=== PATIENT | female | born 1990 | race Caucasian/White ===

== ENCOUNTER 2019-07-17 16:45 | Emergency (ER) | payer OTHER, SELFPAY ==
[2019-07-17 17:11] VITALS: BP 128/87; PULSE 100; RESP 20; TEMP 37.7; O2SAT 100
--- NOTE | 2019-07-17 17:50 | ED.GENADULT ---
HPI - General Adult General Chief complaint: Upper Respiratory Infection Stated complaint: Ear/Nose Throat Time Seen by Provider: 07/17/19 17:50 Source: patient and RN notes reviewed Mode of arrival: ambulatory Limitations: no limitations History of Present Illness HPI narrative: 28-year-old female presents with complaints of sore throat, back pain, tactile fever, chills, and rhinorrhea for 1 day. Symptoms worsen throughout the day. Mucinex DM and Flonase without relief. No high fevers, drooling, neck or throat swelling. Pain is bilateral. Hurts to swallow. Rhinorrhea and nasal congestion. No voice change. Nausea without vomiting or abdominal pain. Tolerating liquids well. Denies dyspnea, difficulty swallowing, jaw pain, dental pain, facial pain, foreign body sensation, and rash. Remains active. Kacey denies being , LMP 4 weeks ago, says she due for her cycle tomorrow. Some parts of this dictation were generated by voice recognition software and may contain typographical and/or grammatical inaccuracies. Related Data Allergies Allergy/AdvReac Type Severity Reaction Status Date / Time amoxicillin Allergy Unknown Rash Verified 07/17/19 17:25 clavulanic acid Allergy Unknown Rash Verified 07/17/19 17:25 clindamycin Allergy Unknown Hives / Verified 07/17/19 17:25 Red Face Review of Systems Review of Systems: Narrative: CONSTITUTIONAL: Complains of fever, chills. Denies sweats. EYES: Denies visual changes, redness, discharge. ENT: Denies otalgia. Complains of sore throat, rhinorrhea, congestion. CARDIOVASCULAR: Denies chest pain, palpitations, edema. RESPIRATORY: Denies dyspnea, wheezing, cough. GASTROINTESTINAL: Denies abdominal pain, nausea, vomiting, diarrhea. GENITOURINARY: Denies dysuria, hematuria, abnormal discharge SKIN: Denies rash or itching. MUSCULOSKELETAL: Denies acute back pain, joint pain, or myalgia. NEUROLOGIC: Denies numbness or focal weakness. PSYCHIATRIC: Denies anxiety or depression PMFSH Comments At time of signature, agree with nurse past medical, surgical, social, and family history. There is no relevant family history pertinent to the presenting complaint. Exam Narrative: Exam Narrative: GENERAL: This is a well-nourished, well-developed patient, in no apparent distress. Speaks in full sentences without deficits and ambulates with steady gait without dyspnea. HEAD: normocephalic, atraumatic. EYES: PERRL. Sclera clear/white. Vision is grossly intact. EARS: External ears normal, auditory canals clear and without drainage, TMs normal without perforation. Hearing grossly intact. NOSE: External nose normal with no obvious nasal discharge, nares with moderate redness and enlarge turbinates, no rhinorrhea. Mouth: moist mucous membranes. THROAT: Mucous membranes moist, posterior pharynx with PND, moderate erythema, and no exudate, and normal tonsils, no drainage, no concern for Peritonsillar abscess. No drooling, trismus, or neck swelling. NECK: Neck supple, non-tender without lymphadenopathy, masses or thyromegaly. CARDIOVASCULAR: Regular rate and rhythm without murmurs, gallops, or rubs. RESPIRATORY: Clear to auscultation. Breath sounds equal bilaterally. No wheezes, rales, or rhonchi. GASTROINTESTINAL: Abdomen soft, non-tender, nondistended. Bowel sounds are active. No hepato-splenomegaly, or palpable masses. No guarding. SKIN: warm, intact with no suspicious lesions or rash, good texture and turgor. NEURO: awake, alert, and oriented to person, place and time. There were no obvious focal neurologic abnormalities. EXTREMITIES: No clubbing, cyanosis, or edema. [place] Coma Scale Eye Opening: Spontaneous 4 [place] Coma Scale Motor: Obeys Commands 6 Reyna Coma Scale Verbal: Oriented 5 Course Vital Signs Vital signs: Vital Signs Temperature 37.7 C H 07/17/19 17:11 Pulse Rate 100 07/17/19 17:11 Respiratory Rate 20 07/17/19 17:11 Blood Pressure 128/87 07/17/19 17:11
== END 2019-07-17 18:05 | disposition home or self-care (01) ==
PROVIDERS: Emergency Provider Nurse Practitioner Family
DX: J02.0 Streptococcal pharyngitis (principal)
CPT/HCPCS: 87880; 99213; G0463

== ENCOUNTER 2022-05-08 08:48 | Emergency (ER) | payer OTHER, SELFPAY ==
[2022-05-08 08:53] VITALS: BP 123/76; PULSE 111; RESP 16; TEMP 36.9; O2SAT 99
--- NOTE | 2022-05-08 10:01 | ED.URI ---
HPI - URI/Sore Throat General Chief Complaint: Upper Respiratory Infection Stated Complaint: sinus infection fever Time Seen by Provider: 05/08/22 09:51 Source: patient Mode of arrival: ambulatory Limitations: no limitations History of Present Illness HPI Narrative: Patient presents today complaining of body aches, headache, congestion, subjective fever with chills, nausea, cough. She was exposed to influenza her 3 days ago and symptoms began yesterday. She took Mucinex D a few days ago, but nothing since then. She has not received a flu vaccine this season. Related Data Allergies Allergy/AdvReac Type Severity Reaction Status Date / Time amoxicillin Allergy Unknown Rash Verified 07/17/19 17:25 clavulanic acid Allergy Unknown Rash Verified 07/17/19 17:25 clindamycin Allergy Unknown Hives / Verified 07/17/19 17:25 Red Face Review of Systems Review of Systems: CONSTITUTIONAL: Denies sweats.+ body aches, subjective fever, chills EYES: Denies visual changes, redness, or discharge. ENT: Denies rhinorrhea, sore throat, or otalgia.+ congestion CARDIOVASCULAR: Denies chest pain, palpitations, or edema. RESPIRATORY: Denies dyspnea.+ GASTROINTESTINAL: Denies abdominal pain, vomiting, or diarrhea.+ nausea GENITOURINARY: Denies dysuria or hematuria. SKIN: Denies rash, itching, or wounds. MUSCULOSKELETAL: Denies back pain, joint pain, or myalgia. NEUROLOGIC: Denies numbness, tingling, or weakness.+ headache PSYCH: Denies depression or anxiety. PMFSH Comments At time of signature, I have reviewed and agree with nursing past medical, surgical, social and family history unless otherwise noted. Please see nursing chart for further information. There is no relevant family history pertinent to the presenting complaint Exam Narrative: GENERAL: Mildly ill-appearing, well-nourished, and in no acute distress. HEAD: Normocephalic, atraumatic. EYES: EOMI. No redness or drainage. Conjunctivae normal. ENT: Mucous membranes pink and moist. Nares congested.. No rhinorrhea. TMs normal bilaterally. Throat normal. Uvula midline. NECK: Normal AROM. Supple. No lymphadenopathy. CHEST: No respiratory distress. Clear to auscultation. HEART: Regular rate and rhythm. No murmur appreciated. Normal peripheral pulses. EXTREMITIES: Normal range of motion. No edema. SKIN: Warm, dry, no rash. Capillary refill normal. Normal skin turgor. NEURO: No focal deficits. Alert and oriented x3. Gait steady. PSYCH: Normal affect. No signs of depression or anxiety. Course Course Level of Care: Express Care Visit Vital Signs Vital signs: Vital Signs Temperature 98.5 F 05/08/22 08:53 Pulse Rate 111 H 05/08/22 08:53 Respiratory Rate 16 05/08/22 08:53 Blood Pressure 123/76 05/08/22 08:53 Pulse Oximetry 99 05/08/22 08:53 Oxygen Delivery Room Air 05/08/22 08:53 Temperature 98.5 F 05/08/22 08:53 Pulse Rate 111 H 05/08/22 08:53 Respiratory Rate 16 05/08/22 08:53 Blood Pressure 123/76 05/08/22 08:53 Pulse Oximetry 99 05/08/22 08:53 Oxygen Delivery Room Air 05/08/22 08:53 Reviewed. Pt has been instructed to follow up with her PCP regarding her elevated blood pressure today. MDM - URI/Sore Throat Differential Diagnosis Differential diagnosis: Likely upper respiratory infection, viral infection and influenza Lab Data Attestation: I reviewed the patient's lab results. Labs: Influenza A Screen Positive Reference Range: Negative Influenza B Screen Negative Reference Range: Negative Critical Care Time Critical Care Time Critical Care Time: No Discharge Plan Discharge Clinical Impression: Influenza A Patient Disposition: Home, Self-Care Condition: Stable Instructions: Influenza (DC) Additional Instructions: You have been diagnosed with influenza A. Please take the T
== END 2022-05-08 10:09 | disposition home or self-care (01) ==
PROVIDERS: Emergency Provider Nurse Practitioner
DX: J10.1 Influenza due to other identified influenza virus with other respiratory manifestations (principal)
CPT/HCPCS: 87804; 99213; G0463

== ENCOUNTER 2023-03-11 00:06 | Emergency (ER) | payer OTHER, SELFPAY ==
[2023-03-11 00:07] VITALS: BP 125/91; PULSE 89; RESP 16; TEMP 36.2; O2SAT 100
[2023-03-11 02:20] VITALS: BP 141/85; PULSE 110; RESP 15; TEMP 36.6; O2SAT 100
--- NOTE | 2023-03-11 07:37 | ED.HA ---
HPI - Headache General Chief Complaint: Headache Stated Complaint: 13 weeks preg, migraines Time Seen by Provider: 03/11/23 07:02 History of Present Illness HPI Narrative: Patient is a 32-year-old female who is 13 weeks who presents ER with reports of migraine headache. She has been having headaches since early in her . He originally there posterior and by her neck. They would occur for minutes at a time. Recently they have moved and become frontal headaches. Throbbing and aching. No change in vision or hearing. No photophobia. She denies aura. She has been referred to a neurologist. She has had an outpatient MRI scheduled but she has not yet been able to get it. She has had no complications with her outside of the headaches that she has been experiencing. She does report some sinus congestion and some fullness in her left ear at times. Current headache has been gradual in onset. No upper or lower extremity numbness or weakness. No ataxia with walking. Related Data Allergies Allergy/AdvReac Type Severity Reaction Status Date / Time amoxicillin Allergy Unknown Rash Verified 07/17/19 17:25 clavulanic acid Allergy Unknown Rash Verified 07/17/19 17:25 clindamycin Allergy Unknown Hives / Verified 07/17/19 17:25 Red Face Review of Systems Review of Systems: All systems reviewed & are unremarkable except as noted in HPI and below Constitutional: Constitutional: Denies chills, Denies fatigue and Denies fever(s) Eyes: Eyes: Denies change in vision and Denies photophobia ENT: Reports nasal congestion and Denies sore throat Cardiovascular: Cardiovascular: Denies chest pain, Denies rapid heart rate and Denies radiating jaw, neck or arm pain Respiratory: Respiratory: Denies cough, Denies dyspnea and Denies wheezing Gastrointestinal: Gastrointestinal: Denies abdominal pain, Denies nausea and Denies vomiting Neurologic: Denies dizziness, Reports headache(s), Denies focal weakness and Denies numbness PMFSH Past Medical History Medical History (Updated 03/11/23 @ 08:37 by Sander Matt MD) Healthy female adult Surgical History Surgical History (Updated 03/11/23 @ 07:39 by Sander Matt MD) No history of previous surgery Exam Narrative: GENERAL: Well-appearing, well-nourished, and in no acute distress. HEAD: Normocephalic, atraumatic. EYES: PERRL and EOMI. ENT: TMs normal bilaterally and ear canals free of cerumen. CHEST: Clear to auscultation. No respiratory distress. HEART: Regular rate and rhythm. Normal peripheral pulses. ABDOMEN: Soft, nontender, nondistended. EXTREMITIES: Normal range of motion. No edema. SKIN: Warm, dry, no rash. NEURO: Alert and oriented x3. PSYCH: Normal mood and affect. Course Course Emergency Course: Headache improved with Reglan and Benadryl as well as IV fluid. No leukocytosis or anemia. Electrolytes unremarkable with normal renal function. Urinalysis with 1+ bacteria and trace leukocyte Estrace. Will place on oral antibiotic for home given . Vital Signs Vital signs: Vital Signs Temperature 97.1 F L 03/11/23 00:07 Pulse Rate 89 03/11/23 00:07 Respiratory Rate 16 03/11/23 00:07 Blood Pressure 125/91 H 03/11/23 00:07 Pulse Oximetry 100 03/11/23 00:07 Oxygen Delivery Room Air 03/11/23 00:07 Temperature 98 F 03/11/23 02:20 Pulse Rate 110 H 03/11/23 02:20 Respiratory Rate 15 03/11/23 02:20 Blood Pressure 141/85 H 03/11/23 02:20 Pulse Oximetry 100 03/11/23 02:20 Oxygen Delivery Room Air 03/11/23 00:07 MDM - Headache Lab Data 03/11/23 07:44 03/11/23 07:44 Labs: Lab Results 03/11/23 03/11/23 Range/Units 07:44 08:13 WBC 6.4 (4.5-10.0) K/mm3 RBC 3.90 L (4.2-5.4) M/mm3 Hgb 12.3 (12.0-15.0) g/dL Hct 35.7 L (37.0-47.0) % MCV 91.5 (80-100) fl MCH 31.5 (26-34) pg MCHC 34.5 (32-36) g/dl RDW 12.4 (11.5-14.
[2023-03-11] MEDS: SODIUM CHLORIDE 0.9% IV 1,000 ML 999 ML IV CONT (07:39)
[2023-03-11] MEDS: diphenhydrAMINE HCl INJ 50 MG/ML VIAL 25 MG IV PUSH (07:40)
[2023-03-11] MEDS: METOCLOPRAMIDE HCL INJ 10 MG/2 ML VIAL IV PUSH (07:40)
[2023-03-11 07:51] LABS: Basophils Absolute Auto 0.1 K/mm3 (0.0-0.1); Basophils Percent Auto 0.8 % (0.2-1.2); Eosinophils Percent Auto 0.5 % (0-4.4); Hematocrit 35.7 % (37.0-47.0); Hemoglobin 12.3 g/dL (12.0-15.0); Immature Granulocyte Absolute 0.02 K/mm3 (0.00-0.031); Immature Granulocyte Percent A 0.3 % (0-0.5); Lymphocytes Absolute Auto 1.77 K/mm3 (0.9-3.2); Lymphocytes Percent Auto 27.7 % (18.3-44.2); Mean Corpuscular HGB Conc 34.5 g/dl (32-36); Mean Corpuscular Hemoglobin 31.5 pg (26-34); Mean Corpuscular Volume 91.5 fl (80-100); Mean Platelet Volume 9.7 fl (7.4-10.4); Monocytes Absolute Auto 0.5 K/mm3 (0.1-0.6); Monocytes Percent Auto 7.5 % (2.6-8.5); Neutrophils Percent Auto 63.2 % (45.5-73.1); Platelet Count Result 265 k/mm3 (150-375); Red Cell Distribution Width 12.4 % (11.5-14.5); White Blood Count 6.4 K/mm3 (4.5-10.0)
[2023-03-11 08:00] VITALS: BP 130/80; PULSE 76; RESP 16; O2SAT 98
[2023-03-11 08:06] LABS: Alanine Aminotransferase 17 U/L (6-35); Albumin Level 4.1 g/dL (3.5-5.1); Alkaline Phosphatase 46 U/L (38-126); Anion Gap 7 mmol/L (8-16); Aspartate Amino Transferase 24 U/L (14-36); Bilirubin,Total 0.6 mg/dL (0.2-1.3); Blood Urea Nitrogen 5 mg/dL (7-17); Calcium 8.8 mg/dL (8.4-10.2); Carbon Dioxide 24 mmol/L (22-30); Chloride 104 mmol/L (98-107); Estimated CRCL calculation 136 ml/min; Estimated Glomerular Filt Rate > 60; Glucose 86 mg/dL (65-110); Potassium 3.6 mmol/L (3.4-5.0); Sodium 135 mmol/L (137-145)
[2023-03-11 08:28] LABS: Appearance Urine Clear (Clear); Bacteria Urine 1+ /hpf; Bilirubin Urine Negative (Negative); Blood Urine Negative (Negative); Color Urine Yellow (Yellow); Glucose Urine UA Negative (Negative); Ketones Urine Negative (Negative); Leukocyte Esterase Ur Trace LEU/UL (Negative); Nitrate Urine Negative (Negative); Non Pathogenic Casts 0-2; Protein Urine Negative (Negative); RBC Urine 0-2 /hpf (0-2); Specific Grav Ur 1.011 (1.001-1.035); Squamous Epithelial Cell Urine None seen /hpf (Few); Urobilinogen Urine 0.2 mg/dL (<2.0); WBC Urine 0-5 /hpf; pH Urine 6.5 (5.0-9.0)
[2023-03-11 08:29] LABS: Add Urine Microscopic? YES
[2023-03-11 08:46] VITALS: BP 132/88; PULSE 86; RESP 16; O2SAT 98
== END 2023-03-11 08:47 | disposition home or self-care (01) ==
PROVIDERS: Emergency Provider Emergency Medicine
DX: O26.891 Other specified pregnancy related conditions, first trimester (principal); R51.9 Headache, unspecified; R82.71 Bacteriuria; Z3A.13 13 weeks gestation of pregnancy
CPT/HCPCS: 36415; 80053; 81001; 85025; 96361; 96374; 96375; 99284; J1200; J2765; J7030

== ENCOUNTER 2023-05-22 20:13 | Observation (INO) | payer OTHER, SELFPAY ==
[2023-05-22] VITALS (10 sets, daily range): BP systolic 68–116; BP diastolic 53–78; PULSE 55–86; BMI 32.0
[2023-05-22] MEDS: LACTATED RINGERS 500 ML 999 ML IV CONT (21:10)
[2023-05-22] MEDS: PROMETHAZINE HCL 25 MG/ML AMPUL 12.5 MG IV PUSH (21:10)
[2023-05-22] MEDS: ACETAMINOPHEN/BUTALBITAL/CAFFEINE 325-50-40 MG TABLET (FIORICET) 1 TAB PO (21:45)
--- NOTE | 2023-05-22 23:04 | PC.NURSE ---
2240 PT CALLS OUT REQUESTING DISCHARGE HOME. PT DENIES HEADACHE OR COMPLAINTS AT THIS TIME.
--- NOTE | 2023-05-25 06:38 | PM.OBTRLD ---
OB - Triage/Final Diagnosis Visit Information Reason for evaluation: threatened labor Comments/Additional reasons for admission: I have assessed the risk for this patient, Kacey Merritt, and determined that she would benefit from observation care.
== END 2023-05-22 23:10 | disposition home or self-care (01) ==
PROVIDERS: Admitting Provider Obstetrics & Gynecology; Visit Provider Obstetrics & Gynecology
DX: O47.02 False labor before 37 completed weeks of gestation, second trimester (principal); Z3A.23 23 weeks gestation of pregnancy
CPT/HCPCS: 96374; A9270; G0378; G0379; J2550; J7120

== ENCOUNTER 2023-09-06 08:12 | Outpatient (CLI) | payer OTHER, SELFPAY ==
[2023-09-06 08:48] LABS: Hematocrit 35.6 % (37.0-47.0); Hemoglobin 11.6 g/dL (12.0-15.0); Mean Corpuscular HGB Conc 32.6 g/dl (32-36); Mean Corpuscular Hemoglobin 30.4 pg (26-34); Mean Corpuscular Volume 93.2 fl (80-100); Mean Platelet Volume 10.3 fl (7.4-10.4); Platelet Count Result 224 k/mm3 (150-375); Red Blood Count 3.82 M/mm3 (4.2-5.4); Red Cell Distribution Width 13.6 % (11.5-14.5); White Blood Count 9.5 K/mm3 (4.5-10.0)
--- NOTE | 2023-09-06 13:55 | PM.IMHP ---
H&P: HPI History of Present Illness Date/Time: 09/06/23 13:55 Chief Complaint: Term for section and tubal ligation secondary to history difficult vaginal delivery Narrative: This is a 32-year-old female admitted for primary low-transverse section secondary to history to have very difficult to instrumented delivery pre. She desires permanent sterilization. The has been otherwise uncomplicated. Risks benefits of reviewed in great detail. Permanence of with tubal ligation were. Alternatives were also reviewed and she opts for the permanent procedure PMFSH Past Medical History Medical History (Updated 09/06/23 @ 13:58 by Codey Dasilva MD) Healthy female adult Surgical History Surgical History (Updated 03/11/23 @ 07:39 by Sander Matt MD) No history of previous surgery Meds Home Medications and Allergies Home Medications Medication Instructions Recorded Confirmed Type loratadine 10 mg tablet (Claritin) 10 mg PO DAILY 60 days #60 tabs 07/17/19 09/06/23 Rx vits no.126-ferrous fum 1 tablet PO DAILY 09/06/23 09/06/23 History 28 mg iron-folic acid 800 mcg tablet (Classic ) Allergies Allergy/AdvReac Type Severity Reaction Status Date / Time amoxicillin Allergy Unknown Rash Verified 09/06/23 09:25 clavulanic acid Allergy Unknown Rash Verified 09/06/23 09:25 clindamycin Allergy Unknown Hives / Verified 09/06/23 09:25 Red Face Exam Const: General: cooperative, healthy appearing and comfortable Nutritional Appearance: average body habitus Orientation/consciousness: oriented to person, oriented to place and oriented to time HENMT: Head: normal to inspection Resp: Effort & Inspection: normal respiratory effort Cardio: Rate: regular rate Rhythm: regular rhythm Heart sounds: S1 normal heart sound present and S2 normal heart sound present GI: Inspection: normal to inspection (Gravid soft uterus. Baby is transverse) : External Female Exam: normal external appearance Speculum Exam - Vagina: normal appearance of the vagina Speculum Exam - Cervix: normal appearance of the cervix (Or thickened closed) H&P: Results Labs Labs: Short CBC 09/06/23 Range/Units 08:25 WBC 9.5 (4.5-10.0) K/mm3 Hgb 11.6 L (12.0-15.0) g/dL Hct 35.6 L (37.0-47.0) % Plt Count 224 (150-375) k/mm3 Assessment and Plan Assessment and plan (1) Term : Code(s): Z34.90 - Encounter for supervision of normal , unspecified, unspecified trimester Status: Acute (2) Sterilization: Code(s): Z30.2 - Encounter for sterilization Status: Acute Plan Pe primary low-transverse section with tubal ligation
[2023-09-06 16:14] LABS: Rapid Plasma Reagin Non-Reactive (NonReactive)
== END 2023-09-06 08:13 | disposition home or self-care (01) ==
PROVIDERS: Visit Provider Obstetrics & Gynecology
DX: Z34.93 Encounter for supervision of normal pregnancy, unspecified, third trimester (principal); Z3A.00 Weeks of gestation of pregnancy not specified
CPT/HCPCS: 36415; 85027; 86592; 86703; 86850; 86900; 86901; G0432

== ENCOUNTER 2023-09-07 05:26 | Inpatient (IN) | payer OTHER, SELFPAY ==
--- NOTE | 2023-09-06 13:58 | HP_ITS ---
This report was moved to the correct visit on 09/10/2023. The original report was signed by Codey Thornton MD on 09/06/23 [id number]. H&P: HPI History of Present Illness Date/Time: 09/06/23 13:55 Chief Complaint: Term for section and tubal ligation secondary to history difficult vaginal delivery Narrative: This is a 32-year-old female admitted for primary low-transverse section secondary to history to have very difficult to instrumented delivery pre. She desires permanent sterilization. The has been otherwise uncomplicated. Risks benefits of reviewed in great detail. Permanence of with tubal ligation were. Alternatives were also reviewed and she opts for the permanent procedure PMFSH Past Medical History Medical History (Updated 09/06/23 @ 13:58 by Codey Dasilva MD) Healthy female adult Surgical History Surgical History (Updated 03/11/23 @ 07:39 by Sander Matt MD) No history of previous surgery Meds Home Medications and Allergies Home Medications Medication Instructions Recorded Confirmed Type loratadine 10 mg tablet (Claritin) 10 mg PO DAILY 60 days #60 tabs 07/17/19 09/06/23 Rx vits no.126-ferrous fum 1 tablet PO DAILY 09/06/23 09/06/23 History 28 mg iron-folic acid 800 mcg tablet (Classic ) Allergies Allergy/AdvReac Type Severity Reaction Status Date / Time amoxicillin Allergy Unknown Rash Verified 09/06/23 09:25 clavulanic acid Allergy Unknown Rash Verified 09/06/23 09:25 clindamycin Allergy Unknown Hives / Verified 09/06/23 09:25 Red Face Exam Const: General: cooperative, healthy appearing and comfortable Nutritional Appearance: average body habitus Orientation/consciousness: oriented to person, oriented to place and oriented to time HENMT: Head: normal to inspection Resp: Effort & Inspection: normal respiratory effort Cardio: Rate: regular rate Rhythm: regular rhythm Heart sounds: S1 normal heart sound present and S2 normal heart sound present GI: Inspection: normal to inspection (Gravid soft uterus. Baby is transverse) : External Female Exam: normal external appearance Speculum Exam - Vagina: normal appearance of the vagina Speculum Exam - Cervix: normal appearance of the cervix (Or thickened closed) H&P: Results Labs Labs: Short CBC 09/06/23 Range/Units 08:25 WBC 9.5 (4.5-10.0) K/mm3 Hgb 11.6 L (12.0-15.0) g/dL Hct 35.6 L (37.0-47.0) % Plt Count 224 (150-375) k/mm3 Assessment and Plan Assessment and plan (1) Term : Code(s): Z34.90 - Encounter for supervision of normal , unspecified, unspecified trimester Status: Acute (2) Sterilization: Code(s): Z30.2 - Encounter for sterilization Status: Acute Plan Pe primary low-transverse section with tubal ligation This report may have been done utilizing a voice recognition system. Attempts have been made to correct errors. However, there may be uncorrected grammatical, spelling, and recognition errors present. Report Initialized date/time: Codey Thornton MD 09/06/23 / 1624 Electronically signed by: Codey Thornton MD 09/06/23 1350 [facility]
[2023-09-07] VITALS (49 sets, daily range): BP systolic 101–135; BP diastolic 56–89; PULSE 72–178; RESP 12–18; TEMP 36.4–36.9; O2SAT 90–100; BMI 33.5
[2023-09-07] MEDS: ACETAMINOPHEN 500 MG TABLET 1000 MG PO (05:42)
--- NOTE | 2023-09-07 05:54 | WPDHPUPDATE1 ---
History and Physical Update Update Date/Time: 09/07/23 05:54 History and Physical has been reviewed, including an updated exam of the patient. There are NO changes in the patient's condition. Risks, benefits, and alternatives have been discussed and questions answered. Patient agrees to proceed with procedure.
--- NOTE | 2023-09-07 07:10 | P.PNAN_ITS ---
Anes - Initial Pre Proc Eval Procedure: Operation Date: 09/07/23 07:30 Proposed Procedures p Section with Tubal Ligation - Codey Dasilva MD Date/Time: 09/07/23 07:10 Surgeon: Codey Dasilva MD Pre Op Diagnosis: C/S Patient Data Age: 32 Gender: F Height: 1.6 m Weight: 86 kg Last Vital Signs Pulse 97 09/07/23 06:33 BP 130/89 09/07/23 06:33 O2 Del Method Room Air 09/07/23 05:52 Allergies Allergy/AdvReac Type Severity Reaction Status Date / Time amoxicillin Allergy Unknown Rash Verified 09/07/23 05:59 clavulanic acid Allergy Unknown Rash Verified 09/07/23 05:59 clindamycin Allergy Unknown Hives / Verified 09/07/23 05:59 Red Face Home Medications Medication Instructions Recorded Confirmed Type vits no.126-ferrous fum 1 tablet PO DAILY 09/06/23 09/07/23 History 28 mg iron-folic acid 800 mcg tablet (Classic ) Patient hx anesthesia problems: none Family hx anesthesia problems: none Results Review: All pre-operative results and documents have been reviewed as part of the pre- operative evaluation. [facility] Past Medical History Medical History (Updated 09/07/23 @ 07:10 by Codey Velazquez MD) Obesity Surgical History Surgical History (Updated 03/11/23 @ 07:39 by Sander Matt MD) No history of previous surgery Family History Family History Other Hypertension Social History Social History Smoking status: Never smoker Substance use: never Do You Feel Safe in your Home?: Yes Lack of Transportation: No Lack of Food: Never True Current Housing: I Have Housing Concerned About Future Housing: No Difficulty Paying Gas/Electric Bills: No Difficulty Paying for Meds: No Currently Unemployed: No Education: Bachelor's Degree Difficulty w/ Childcare or Family Care: No Spiritual care concerns: No Anes - Eval Final PreProcedure Day of Procedure 09/07/23 07:10 Patient weight: obese Heart: regular rate and rhythm Lungs: clear to auscultation Airway: Mallampati scale class II Neurological: alert and oriented Last oral intake: >/= 8 hours ASA classification: II Emergent: no Anesthetic plan: proceed Anesthesia type and monitoring: regional spinal and standard monitoring Results Review: All pre-operative results and documents have been reviewed as part of the pre- operative evaluation. Informed Consent: The patient's anesthetic plan and its attendant risks and benefits were discussed with the patient/family/POA. Questions were solicited and answers provided to the satisfaction of the patient/family/POA.
[2023-09-07] MEDS: LACTATED RINGERS 1,000 ML 125 ML IV CONT ×2 (07:13→07:14)
[2023-09-07] MEDS: ONDANSETRON INJ 4 MG/2 ML VIAL IV PUSH (07:14)
[2023-09-07] MEDS: FAMOTIDINE 20 MG/2 ML VIAL IV PUSH (07:14)
[2023-09-07] MEDS: ceFAZolin 2 GM/D5W 50 ML 2 GM/50 ML BAG IVPB (07:27)
--- NOTE | 2023-09-07 08:17 | W.PM.OBCSD ---
OB - Delivery Note Procedure Delivery date: 09/07/23 Pre-op diagnosis: Other (Elective with previous difficult instrumented delivery desires sterilization) Post-op Diagnosis: Same Delivery monitor: External FHT Procedure Performed: Primary and Tubal Ligation Surgeon: Codey Dasilva MD Anesthesia type: Spinal Description of Procedure/Findings: patient was prepped draped sterile fashion placed supine position. Under excellent spinal anesthetic the abdomen was entered in Pfannenstiel fashion progressive layers of fascia. The patient's I's and upward outward manner bilaterally. Parietal peritoneum away quickly emptied by sharp dissection carried superiorly and inferiorly to the dome. Bladder blade placed. Bladder flap formed. Bladder blade returned. A low-transverse incision made the head delivered in the JEFF position. Anterior posterior shoulder delivered spontaneously. Cord clamped take 2 and cut and passed off the table given of and 9. Placenta delivered in manually after getting blood drawn after assuring no membranes or debris remained in the uterus, the uterus was closed with continuous running locking 0 Vicryl from lateral edge to lateral edge. This was followed by 2nd imbricating running locking 0 Vicryl from lateral edge to lateral edge. Hemostasis was assured. The patient and patient desired permanent sterilization. The right fallopian tube was grasped with midportion. A good knuckle of tube free formed with 0 chromic. The peritoneum appears between the distal and proximal legs free tied with 0 chromic. The portion passed off after cutting in between as portion of right fallopian tube. Hemostasis was assured. In similar fashion the left fallopian tube was grasped at its midportion. Good knuckle of tube free formed with 0 chromic. The peritoneum appears between in the distal and proximal legs free tied with 0 chromic. The portion between incised and passed off as portion of left fallopian tube. Hemostasis was assured. Visualization of the uterine incision was inspected 1 last time and noted be hemostatic. The uterus returned the abdomen. The laps removed and accounted for. The fascia closed with continuous running 0 Vicryl from lateral edge to midline bilaterally. Irrigation subcutaneous layer the skin closed with 4 Monocryl glue. Blood loss was 755cc. All sponge, needle, instrument counts were correct. There were no immediate complications Specimen: Yes ( bilateral portions of tubes) Estimated Blood Loss: 755 Drains: No Packing: No Pathology: Yes Complications: No immediate complications Condition: Stable Disposition: Floor Baby Date of : 09/07/23 Time of : 08:00 Weeks of gestation at delivery: 39 Infant gender: Male Weight (pounds): 7 Weight (ounces): 1 presentation: vertex position: Left Occiput Anterior Placenta delivery description: Manual Removal Cord Vessel Description: 3 Vessels, Nuchal Cord and Loose score one minute: 9 score five minutes: 9
--- NOTE | 2023-09-07 08:20 | PM.DS ---
DS: Admitting Diagnosis Discharge Date 10/10/2023 Admitting Diagnosis term /desires permanent sterilization DS: Discharge Diagnosis Discharge Diagnosis (1) Sterilization: Code(s): Z30.2 - Encounter for sterilization Status: Acute (2) Term : Code(s): Z34.90 - Encounter for supervision of normal , unspecified, unspecified trimester Status: Acute DS: Summary Hospital Course Reason for hospitalization: patient was admitted for primary each was low-transverse section and tubal ligation secondary to history of difficult instrument delivery. Hospital Course: Her hospital course unremarkable. She remained afebrile. She was up, eating regular diet, ambulating, voiding without difficulty generally without complaints. Time Spent with Patient Time attestation: Total time spent providing and/or coordinating discharge services: Exam Const: General: cooperative, healthy appearing and comfortable Nutritional Appearance: average body habitus Orientation/consciousness: oriented to person, oriented to place and oriented to time HENMT: Head: normal to inspection Resp: Effort & Inspection: normal respiratory effort Cardio: Rate: regular rate Rhythm: regular rhythm Heart sounds: S1 normal heart sound present and S2 normal heart sound present GI: Inspection: normal to inspection ( Fundus firm below the umbilicus) and incision ( wound is clean dry and) Discharge Plan Discharge Attending physician on discharge: Codey Thornton Discharging Clinician: Codey Thornton Patient Disposition: Home, Self-Care Activity: may shower, no straining, may drive after 2 weeks and pelvic rest Diet: heart healthy Wound Care Instructions: follow printed instructions Patient Instructions: Antibiotic Form Stand Alone Forms: General Discharge Information Follow-up/Referrals: Codey Thornton MD [Physician] - Discharge Medications: Continued Classic 28 mg iron- 800 mcg Tablet 1 tablet PO DAILY Date of admission: 09/07/23 05:26 Primary Care Provider: PHYSICIAN,HEEL VARNISHER Admitting Provider: Codey Thornton Attending physician on admission: Codey Thornton Condition: Stable
--- NOTE | 2023-09-07 09:10 | PC.NURSE ---
heart tones obtained after spinal placement. FHT 130 at 0733. Proceeded to prep patient for section routinely.
[2023-09-07] MEDS: OXYTOCIN 30 UNITS/NS 500 ML 30 UNITS/500 ML BAG 125 UNITS IV CONT (10:03)
[2023-09-07 10:21] LABS: HIV 1/2 Ab P24 Ag Result Negative (Negative)
--- NOTE | 2023-09-07 10:47 | PC.NURSE ---
Patient transferred to post room #282 via stretcher. Support person present. Oriented to unit, room, information board, rooming in, admission packet and security measures. Patient verbalizes understanding.
[2023-09-07] MEDS: LIDOCAINE 5% PATCH 1 PATCH TRANSDERM (11:19)
[2023-09-07] MEDS: ACETAMINOPHEN 325 MG TABLET 650 MG PO ×2 (12:02→18:40)
[2023-09-07] MEDS: KETOROLAC 15 MG/ML VIAL (*BKC) IV PUSH ×2 (12:02→18:40)
[2023-09-07] MEDS: DOCUSATE SODIUM 100 MG CAPSULE PO ×2 (12:02→16:18)
[2023-09-07] MEDS: SIMETHICONE 80 MG TAB.CHEW PO ×2 (12:02→16:18)
[2023-09-08] MEDS: ACETAMINOPHEN 325 MG TABLET 650 MG PO ×4 (00:44→19:15)
[2023-09-08] MEDS: KETOROLAC 15 MG/ML VIAL (*BKC) IV PUSH ×2 (00:44→06:51)
[2023-09-08 04:35] VITALS: BP 105/67; PULSE 89; RESP 16; TEMP 36.8
[2023-09-08 05:27] LABS: Basophils Absolute Auto 0.1 K/mm3 (0.0-0.1); Basophils Percent Auto 0.5 % (0.2-1.2); Eosinophils Absolute Auto 0.1 K/mm3 (0-0.3); Eosinophils Percent Auto 0.7 % (0-4.4); Hematocrit 32.7 % (37.0-47.0); Hemoglobin 10.7 g/dL (12.0-15.0); Immature Granulocyte Absolute 0.08 K/mm3 (0.00-0.031); Immature Granulocyte Percent A 0.5 % (0-0.5); Lymphocytes Absolute Auto 1.92 K/mm3 (0.9-3.2); Lymphocytes Percent Auto 12.7 % (18.3-44.2); Mean Corpuscular HGB Conc 32.7 g/dl (32-36); Mean Corpuscular Hemoglobin 30.7 pg (26-34); Mean Corpuscular Volume 93.7 fl (80-100); Mean Platelet Volume 10.6 fl (7.4-10.4); Monocytes Absolute Auto 0.9 K/mm3 (0.1-0.6); Monocytes Percent Auto 6.2 % (2.6-8.5); Neutrophils Percent Auto 79.4 % (45.5-73.1); Platelet Count Result 207 k/mm3 (150-375); Red Blood Count 3.49 M/mm3 (4.2-5.4); Red Cell Distribution Width 13.7 % (11.5-14.5); White Blood Count 15.1 K/mm3 (4.5-10.0)
--- NOTE | 2023-09-08 05:56 | PM.OBPNVD ---
OB - PN: Subj Subjective Date/time seen: 09/08/23 05:56 Patient comments: no complaints and pain well controlled baby status: doing well OB - PN: Obj Data Labs 09/08/23 04:35 Labs: Laboratory Results - last 24 hr 09/06/23 09/08/23 08:21 04:35 WBC 15.1 H RBC 3.49 L Hgb 10.7 L Hct 32.7 L MCV 93.7 MCH 30.7 MCHC 32.7 RDW 13.7 Plt Count 207 MPV 10.6 H Immature Gran % (Auto) 0.5 Neut % (Auto) 79.4 H Lymph % (Auto) 12.7 L [place] % (Auto) 6.2 Eos % (Auto) 0.7 Baso % (Auto) 0.5 Lymph # (Auto) 1.92 [place] # (Auto) 0.9 H Eos # (Auto) 0.1 Baso # (Auto) 0.1 Abs Immat Gran (auto) 0.08 H Absolute Neuts (auto) 12.0 H Absolute Nucleated RBC 0.000 Nucleated RBC % 0.0 HIV 1&2 Ab/P24 Ag 4thGn Negative OB - PN A/P Plan day: 1 Plan: routine care Time Spent With Patient Time: Total time spent is greater than 50% in coordination of care (as documented) at patient's floor/unit and/or counseling patient: Time with patient: less than 15 minutes Exam Const: General: cooperative, healthy appearing and comfortable Nutritional Appearance: average body habitus Orientation/consciousness: oriented to person, oriented to place and oriented to time HENMT: Head: normal to inspection Resp: Effort & Inspection: normal respiratory effort Cardio: Rate: regular rate Rhythm: regular rhythm Heart sounds: S1 normal heart sound present and S2 normal heart sound present GI: Inspection: normal to inspection and incision (cdi)
[2023-09-08 07:00] VITALS: BP 129/80; PULSE 94; RESP 18; TEMP 36.6; O2SAT 99
[2023-09-08] MEDS: DOCUSATE SODIUM 100 MG CAPSULE PO ×2 (07:03→16:24)
[2023-09-08] MEDS: SIMETHICONE 80 MG TAB.CHEW PO ×3 (07:03→16:24)
[2023-09-08] MEDS: MULTIVIT/MIN/PREN/FOL AC/IRON TABLET 1 TAB PO (07:03)
--- NOTE | 2023-09-08 07:31 | WPDANLDPN2 ---
Anes-Prog Note L&D Date/Time: 09/08/23 07:31 Comfortable throughout: section Neuraxial method: spinal Epidural/Spinal procedure site: clean & non-tender Neuro status: Neuro function grossly intact. Cardiovascular status: normal Respiratory status: normal Airway patency: baseline Mental status: baseline Post-Op hydration status: normal Vital Signs: Last Vital Signs Temp 36.6 C 09/08/23 07:00 Pulse 94 09/08/23 07:00 Resp 18 09/08/23 07:00 BP 129/80 09/08/23 07:00 Pulse Ox 99 09/08/23 07:00 O2 Del Method Room Air 09/08/23 07:00 Pain score (VAS): 2 I/O: Intake & Output 09/07/23 09/07/23 09/08/23 15:59 23:59 07:59 Intake Total 900 1800 1000 Output Total 905 2150 1000 Balance -5 -350 0 Post-procedural complaints: none Patient feedback: Patient satisfied with anesthetic care.
--- NOTE | 2023-09-08 07:32 | WPDANLDNPN2 ---
Anes-Prog Note L&D-Neuraxial Date/Time: 09/08/23 07:32 Neuraxial medications: intrathecal PF morphine Opiod-related complaints: none Patient feedback: Patient satisfied with post-operative pain management.
--- NOTE | 2023-09-08 09:39 | PC.NURSE ---
[id number] Mother verbalizes she is able to independently latch . She denies any nipple discomfort, responsively , and states this is latch well. Mother shared her history with her previous two children. The first did not latch well, there was a concern for lack of supply with the second. Infant is currently meeting outcomes for weight, output, jaundice, blood sugar and feeding frequencies of 8-12 times in 24 hours. We reviewed the positive signs of infant effectively and parents share confidence that is going well. Mother declines any additional assistance or education at this time. Mother is encouraged to call for assistance if her infant doesn?t latch, pain with latching, questions or concerns. Mother voiced understanding of information shared and name written on the communication board to call for a latch assessment.
[2023-09-08] MEDS: IBUPROFEN 600 MG TABLET PO ×2 (13:08→19:15)
[2023-09-08] MEDS: LIDOCAINE 5% PATCH 1 PATCH TRANSDERM (14:05)
[2023-09-08] MEDS: POLYSACCHARIDE IRON COMPLEX 150 MG CAPSULE PO (16:24)
[2023-09-08 18:20] VITALS: BP 131/91; PULSE 106; RESP 18; TEMP 37.1; O2SAT 100
[2023-09-08] MEDS: HYDROcodone/acetaminophen (*CRX) 5-325 MG TABLET 1 TAB PO (21:55)
[2023-09-09] MEDS: ACETAMINOPHEN 325 MG TABLET 650 MG PO ×2 (02:05→08:10)
[2023-09-09] MEDS: IBUPROFEN 600 MG TABLET PO ×2 (02:05→08:10)
--- NOTE | 2023-09-09 06:35 | PM.OBPNVD ---
OB - PN: Subj Subjective Date/time seen: 09/09/23 06:35 Patient comments: no complaints and pain well controlled baby status: doing well and nursing well OB - PN: Obj Data Labs 09/08/23 04:35 OB - PN A/P Plan day: 2 Plan: routine care, discharge home and follow up 6 weeks (4) Time Spent With Patient Time: Total time spent is greater than 50% in coordination of care (as documented) at patient's floor/unit and/or counseling patient: Time with patient: less than 15 minutes Exam Const: General: cooperative, healthy appearing and comfortable Nutritional Appearance: average body habitus Orientation/consciousness: oriented to person, oriented to place and oriented to time HENMT: Head: normal to inspection Resp: Effort & Inspection: normal respiratory effort Cardio: Rate: regular rate Rhythm: regular rhythm Heart sounds: S1 normal heart sound present and S2 normal heart sound present GI: Inspection: normal to inspection and incision (cdi)
[2023-09-09] MEDS: MULTIVIT/MIN/PREN/FOL AC/IRON TABLET 1 TAB PO (07:33)
[2023-09-09] MEDS: SIMETHICONE 80 MG TAB.CHEW PO (07:33)
[2023-09-09] MEDS: DOCUSATE SODIUM 100 MG CAPSULE PO (07:33)
[2023-09-09 07:41] VITALS: BP 120/82; PULSE 89; RESP 18; TEMP 36.6; O2SAT 98
--- NOTE | 2023-09-09 14:33 | PC.NURSE ---
[id number] Consulted with mother concerning needs and she is demonstrating her ability to independently latch infant optimally without pain after initial latch. Mother is feeding appropriately for growth of infant and understands stimulating to eat if needed. Infant has had appropriate feedings in the last 24 hours meets the outcomes for weight, output, blood sugar and jaundice at this time. Nipple is misshaped after is detached related to lack of effective and becoming sleepy. Reviewed positioning and ear, shoulder, hip alignment, supporting the breast to facilitate a deep latch, asymmetrical latch (off-center), leading with the chin with a big, open, wide gape and body close to mother. Infant latched optimally to the left, then the right breast in football position. Education given to the mother of how to visualize the suckling (with good rocking jaw motion), swallows (dropping of the lower jaw) and how to listen for drinking at the breast (the ka sound) which infant demonstrates with 1:1 suck swallow. Infant was able to maintain latch without pain to mother protecting the nipple with optimal positioning, latching, and mother states latch has no pain with improved deeper latch. Mother shares that her full milk supply is coming to volume and RN JOAQUINA agrees with breast assessment and swallowing of increases after a few minutes of suckling. Reviewed comfort measures of healing with a warm, wet washcloth to rinse breast, then leave open to air-dry, good handwashing when or touching the breast/nipples to prevent infection. Reinforced understanding of milk production, transition of milk, signs of adequate intake, transition of stool, prevention/relief of engorgement, plugged ducts, mastitis, responsive watching for feeding cues, the different methods of stimulating to breastfeed 1-3 hours after the start of the last feeding, community resources, and when to call a provider using the resource of the feeding sheet along with the mom and baby guide. Mother voiced understanding of the information shared, is confident to continue effectively her infant at home, when to call for assistance, denies any additional assistance or education at this time. Reported to the Primary RN.
[2023-09-10 11:25] VITALS: BP 117/79; PULSE 96; RESP 18; TEMP 36.8; O2SAT 98
== END 2023-09-09 09:55 | disposition home or self-care (01) | DRG 785 ==
LOC: ANHLDR 05:30 → ANHOB2 10:49
PROVIDERS: Admitting Provider Obstetrics & Gynecology; Visit Provider Obstetrics & Gynecology
PROC: 10D00Z1 Extraction of Products of Conception, Low, Open Approach (ICD-10-PCS; CPT 59514; principal; 2023-09-07 07:30)
DX: O99.892 Other specified diseases and conditions complicating childbirth (principal); Z37.0 Single live birth; Z3A.39 39 weeks gestation of pregnancy; Z87.59 Personal history of other complications of pregnancy, childbirth and the puerperium; O69.81X0 Labor and delivery complicated by cord around neck, without compression, not applicable or unspecified; Z30.2 Encounter for sterilization
CPT/HCPCS: 36415; 59025; 85025; 86703; 88302; A9270; G0432; J0690; J1885; J2274; J2405; J2590; J7120